=== PATIENT | male | born 1995 | race Caucasian/White ===

== ENCOUNTER 2019-04-12 12:28 | Emergency (ER) | payer OTHER ==
[2019-04-12 12:36] VITALS: PULSE 71; TEMP 99.2; BMI 25.0
[2019-04-12] MEDS ORDERED: KETOROLAC TROMETHAMINE 60 MG/2 ML VIAL IM ONE (12:50)
[2019-04-12] MEDS ORDERED: KETOROLAC TROMETHAMINE 60 MG/2 ML VIAL ONE (12:51)
[2019-04-12] MEDS ORDERED: METHOCARBAMOL 500 MG TABLET PO ONE (12:56)
--- NOTE | 2019-04-12 12:57 | PDOC ---
History of Present Illness - General Chief Complaint: Back Pain Stated Complaint: LOWER BACK PAIN Time Seen by Provider: 04/12/19 12:42 History Source: Patient Exam Limitations: Clinical Condition - History of Present Illness Initial Comments: 04/12/19 12:53 Patient with past medical history of sciatica on baclofen and gabapentin for neuralgia presented with complaint of sudden onset of severe lower back pain upon waking early this morning. Patient reported he was sleeping inflatable mattress which deflated while he was sleeping and woke up with severe back pain radiating to bilateral legs. Patient reports taking home gabapentin and baclofen this morning with minimal improvement. Denies urinary, frequency, dysuria, nausea or vomiting. Denies any other symptoms Occurred: reports: this morning Past History - Past Medical History Allergies/Adverse Reactions: Allergies Allergy/AdvReac Type Severity Reaction Status Date / Time No Known Allergies Allergy Verified 04/12/19 12:31 Home Medications: Ambulatory Orders Ketorolac Tromethamine [Toradol] 10 mg PO Q8H PRN #20 tablet 04/12/19 Lidocaine 5% Patch [Lidoderm -] 1 patch TP DAILY #7 patch 04/12/19 - Psycho Social/Smoking Cessation Hx Smoking History: Current some day smoker Have you smoked in the past 12 months: Yes Number of Cigarettes Smoked Daily: 7 Information on smoking cessation initiated: Yes Hx Alcohol Use: No Drug/Substance Use Hx: No Substance Use Type: Alcohol, Opiates Review of Systems - Review of Systems Able to Perform ROS?: Yes Is the patient limited Urdu proficient: No Constitutional: No: Fever, Malaise, Weakness HEENTM: No: Symptoms Reported Respiratory: No: Symptoms reported Cardiac (ROS): No: Symptoms Reported : No: Symptoms Reported Musculoskeletal: Yes: Symptoms Reported, See HPI, Back Pain (b/l lower back), Muscle Pain (lower back) Integumentary: No: Symptoms Reported Neurological: Yes: Symptoms reported, See HPI, Tingling (to b/l LE). No: Numbness, Paresthesia All Other Systems: Reviewed and Negative *Physical Exam - Vital Signs Last Vital Signs Temp Pulse Resp BP Pulse Ox 99.2 F 71 18 97/50 L 99 04/12/19 12:31 04/12/19 12:31 04/12/19 12:31 04/12/19 12:31 04/12/19 12:31 - Physical Exam Comments: 04/12/19 12:56 GENERAL: Well developed, well nourished. Awake and alert in moderate acute distress. PULMONARY: No evidence of respiratory distress. MUSCULOSKELETAL : Moderate tenderness over posterior paravertebral muscle of lumbosacral spine of L4-S2 on bilateral sides. No bony deformities SKIN: Warm and dry. Normal capillary refill. NEUROLOGICAL: Alert, awake, appropriate. No motor deficits in the lower extremities. Gait is normal without ataxia. PSYCHIATRIC: Cooperative. Good eye contact. Appropriate mood and affect. General Appearance: Yes: Nourished, Appropriately Dressed, Apparent Distress, Moderate Distress ED Treatment Course - RADIOLOGY Radiology Studies Ordered: Category Date Time Status SPINE-LUMBAR SACRAL [RAD] Stat Radiology 04/12/19 12:50 Ordered Medical Decision Making - Medical Decision Making 04/12/19 12:54 Patient with past medical history of sciatica on baclofen and gabapentin for neuralgia presented with complaint of sudden onset of severe lower back pain upon waking early this morning. Patient reported he was sleeping inflatable mattress which deflated while he was sleeping and woke up with severe back pain radiating to bilateral legs. Patient reports taking home gabapentin and baclofen this morning with minimal improvement. Denies urinary, frequency, dysuria, nausea or vomiting. Denies any other symptoms Exam significant for bilateral paravertebral muscle tenderness over lumbosacral spine of L4-S2 which is worse with external rotation of hip. Patient symptoms likely sciatica. Toradol 60 mg IM ordered for pain. Robaxin 1000 mg ordered for spasm. X-ray of lumbosacral ordered to rule out acute pathology 04/12/19 13:25 X-ray of lumbosacral spine shows no acute pathology except mild straightening of the spine consistent with spasm. Patient reported mild improvement in pain with Toradol and Robaxin. Lidocaine patch applied the patient back to help with the pain. Patient stable for discharge on p.o. Toradol as needed for pain with advised to continue home baclofen muscle relaxant and heat therapy with orthopedics neurosurgery follow- up Discharge - Discharge Information Problems reviewed: Yes Clinical Impression/Diagnosis: Lumbago with sciatica, unspecified side Qualifiers: Chronicity: chronic Back pain laterality: bilateral Sciatica laterality: bilateral sciatica Qualified Code(s): M54.42 - Lumbago with sciatica, left side Condition: Stable Disposition: HOME - Admission No - Additional Discharge Information Prescriptions: Ketorolac Tromethamine [Toradol] 10 mg PO Q8H PRN #20 tablet PRN Reason: Back Pain Lidocaine 5% Patch [Lidoderm -] 1 patch TP DAILY #7 patch - Follow up/Referral Referrals: Johan Ibarra MD, [facility] [Staff Physician] - - Patient Discharge Instructions Patient Printed Discharge Instructions: DI for Back Pain With Sciatica Additional Instructions: X-ray of your back shows mild spasm of the muscle of your back which is likely the cause of your pain. Take prescribed medication as prescribed for pain. Continue home muscle relaxer baclofen as needed for spasm. Apply hot compress to lower back 2-3 times a day as needed for pain. Follow-up referred orthopedic clinical rehab specialist if no improvement in 3 days - Post Discharge Activity
[2019-04-12] MEDS ORDERED: METHOCARBAMOL 500 MG TABLET ONE (12:58)
[2019-04-12] MEDS ORDERED: LIDOCAINE 5% TOPICAL PATCH TP ONE (13:15)
[2019-04-12] MEDS ORDERED: LIDOCAINE 5% TOPICAL PATCH ONE (13:18)
[2019-04-12 13:30] VITALS: BP 107/68
== END 2019-04-12 13:31 | disposition home or self-care (01) ==
LOC: JERFT 12:28
PROC: 3E0233Z Introduction of Anti-inflammatory into Muscle, Percutaneous Approach (ICD-10-PCS; principal; 2019-04-12)
DX: M54.42 Lumbago with sciatica, left side (principal); Z72.0 Tobacco use
CPT/HCPCS: 72100-TC-FY; 99281-25